=== PATIENT | male | born 1950 | race Caucasian/White ===

== ENCOUNTER 2018-08-20 05:38 | Day surgery (SDC) | payer OTHER, MEDICARE, SELFPAY ==
--- NOTE | 2018-08-20 | HYD_PTH ---
PATIENT: ISIAH VARELA LOC: [facility] U#:[id number] AGE/SX: 68/M ROOM: RE08/20/[address]: Dr. Miseal Lucia MD : [id number] BED: DIS: 08/20/2018 SPEC #: [id number] RECD: 08/20/18 09:19 STATUS: AMAN GERARD #: [id number] SWAPNIL: 08/20/18 00:[address]: Misael Lucia DEPT: SURGICAL PATHOLOGY RECD BY: Leif Ledbetter ENTERED: 08/20/18 10:32 SP TYPE: HYDROCELE OTHR DR: Dr. Ting Feliz MD Tissues: HYDROCELE Procedures: Surgery Specimen Level II HEADER OPERATION: Right hydrocelectomy PRE-OP DIAGNOSIS: Right encysted hydrocele TISSUE SUBMITTED: Right hydrocele sac MICROSCOPIC DIAGNOSIS Right hydrocele sac: Consistent with hydrocele sac. A portion of attached epididymis, no pathologic diagnosis. SJ:aniceto 08/22/18 MICROSCOPIC DESCRIPTION Slides are reviewed. GROSS DESCRIPTION Received in fixative is one container labeled with the patient's name and designated right hydrocele sac. The specimen consists of two variable size pieces of berg fibromembranous tissue measuring in aggregate 12 x 9 x 0.5 cm. No mass lesion is identified. [employer] Manager sections are submitted in two cassettes. / JOSUE:aniceto 08/20/18 TC:5 CPT: 11299
[2018-08-20 06:16] LABS: Prothrombin Time Fingerstick 11.7 SEC (11.9-14.4)
[2018-08-20 06:27] VITALS: BP 121/80; PULSE 87; RESP 16; TEMP 36.6; O2SAT 94; BMI 21.5
[2018-08-20] MEDS: Cefazolin 2 GM in 0.9% Normal Saline 100 ML IV (07:16)
[2018-08-20] MEDS: Bupivacaine Mpf 0.5% 30 ML VIAL (08:02)
--- NOTE | 2018-08-20 08:18 | DCINST_ITS ---
Discharge Diet: Light diet - advance as tolerated Discharge Activity: Return to Normal Activity Call your doctor if your incision/area has: Continuous Slow Oozing, Sudden Increased Bleeding, Increased Pain/ Swelling, Increased Redness, Foul Smelling Discharge, Swelling at the incision site Call your doctor if you observe: Fever of 101 or Higher Instructions: Hydrocele Surgery (Hydrocelectomy) Additional Instructions: ice scrotum with bag of ice every 20minutes off and on for 3 days teach how to care for CHAYA drain. Allergies/Adverse Reactions: Allergies influenza A (H1N1) virus vaccine m-ulysses-split 2008 [From influenza A (H1N1)] Allergy (Verified 08/13/18 10:48) Unknown Influenza Virus Vaccines Allergy (Verified 08/13/18 10:48) Unknown metoclopramide Allergy (Verified 05/17/17 13:04) Unknown promethazine Allergy (Verified 05/17/17 13:04) Unknown Medications to take at Discharge Acetaminophen [Tylenol Extra Strength] 500 mg PO QHS 05/17/17 Allopurinol 300 mg PO DAILY 05/17/17 Bisacodyl [Dulcolax] 5 mg PO SUTUTHFR 05/17/17 Cholecalciferol (Vitamin D3) [Vitamin D3] 2,000 unit PO DAILY 05/17/17 Docusate Sodium [Colace] 100 mg PO SUTUTHFR 05/17/17 Gabapentin [Neurontin] 300 mg PO QHS 05/17/17 Gabapentin [Neurontin] 600 mg PO DAILY 05/17/17 Haloperidol 1 mg PO DAILY 05/17/17 Lansoprazole [Prevacid] 30 mg PO DAILY 05/17/17 Mirtazapine [Remeron] 45 mg PO QHS 05/17/17 Pedi Mv No.79/Ferrous Fumarate [Flintstones with Iron Tab Chew] 15 mg PO DAILY 05/17/17 Polyethylene Glycol 3350 [Miralax] 17 gm PO PRN PRN 05/17/17 Potassium Chloride 10 meq PO DAILY 05/17/17 Warfarin Sodium [Coumadin] 4 mg PO SUMOTUWETHFR 05/17/17 levETIRAcetam tablet [Keppra] 500 mg PO BID 05/17/17 Alfuzosin HCl [Alfuzosin HCl ER] 10 mg PO QHS 08/13/18 Warfarin [Coumadin (PBKC)] 2 mg PO SA 08/13/18 Orders to be completed after discharge: Prothrombin Time w/INR Time Frame: 08/20/18, Location: Laboratory Primary Care Physician: Ting Feliz MD [Primary Care Provider] - Test Results: Test results from this visit will be discussed in further detail at your follow- up appointment, if applicable. Please Follow Up With: Misael Lucia MD When: please call to make an appointment- remove drain next saturday
--- NOTE | 2018-08-20 08:22 | PCM.OPRPT ---
Report of Operation Date of Procedure: 08/20/18 Pre-Operative Diagnosis: Right large symptomatic hydrocele Post-Operative Diagnosis: Same Surgery/Procedure Performed:: Right hydrocelectomy Description of Surgical Findings:: 68-year-old male taken back to the operating room after smooth induction of anesthesia the scrotum had a large hydrocele in the right side the scrotum was shaved prepped and draped in usual sterile fashion. I then made an incision in the midline raphae. We infiltrated the midline raphae with lidocaine. Then dissected through the skin the dartos muscle layer and then got to the hydrocele sac once I got into the hydrocele sac I delivered the hydrocele sac opened up a small opening the hydrocele sac to drain out the fluid the liver the sac from the scrotum I then incised the hydrocele sac we excised the edges of it off the testicle and also excised the sac itself of the testicle and off the spermatic cord after doing this then recheck for bleeding there were several spots of smooth minor bleeding you suture to suture these closed to make sure there is no bleeding then used electrocautery to make sure that there was no bleeding from the dissection. After the sac was removed areas along the cord were sutured and cauterized irrigated the wound placed the testicle back into the scrotum and the correct lie and then place a CHAYA drain into the scrotum and secured the drain to the skin with a stitch we then closed the dartos layer with a running 3-0 chromic and closed the skin with a running 4-0 chromic patient's anesthetic was reversed fluffs and dressed were were placed is taken back to the PACU in good condition. Type of Anesthesia:: General Drains: CHAYA - Admit VTE Documentation VTE Present on Admission: No VTE Mechan Device Prophylaxis: SCD's
[2018-08-20 08:25] VITALS: BP 121/80; BP 148/101; PULSE 85; RESP 14; TEMP 36.3; O2SAT 100
[2018-08-20 08:32] VITALS: BP 121/80; BP 135/94; PULSE 81; RESP 16; O2SAT 97
[2018-08-20 08:45] VITALS: BP 121/80; BP 124/78; PULSE 67; RESP 16; TEMP 36.1; O2SAT 96
[2018-08-20 10:25] VITALS: BP 121/80; BP 156/84; PULSE 69; RESP 16; TEMP 36.2; O2SAT 93
== END 2018-08-20 10:25 | disposition home or self-care (01) ==
LOC: SDC 05:43 → AC 05:46
PROVIDERS: Family Provider Internal Medicine; PCP Internal Medicine; Referring Provider Urology; Visit Provider Urology
PROC: (CPT 55040; principal; 2018-08-20 07:15)
DX: N43.0 Encysted hydrocele (principal); N40.1 Benign prostatic hyperplasia with lower urinary tract symptoms; N13.8 Other obstructive and reflux uropathy; R35.0 Frequency of micturition; R39.11 Hesitancy of micturition; R39.14 Feeling of incomplete bladder emptying; I69.959 Hemiplegia and hemiparesis following unspecified cerebrovascular disease affecting unspecified side; I10 Essential (primary) hypertension; E78.5 Hyperlipidemia, unspecified; M10.9 Gout, unspecified; G25.81 Restless legs syndrome; I73.9 Peripheral vascular disease, unspecified; K21.9 Gastro-esophageal reflux disease without esophagitis; F32.9 Major depressive disorder, single episode, unspecified; F41.9 Anxiety disorder, unspecified; Z79.01 Long term (current) use of anticoagulants; Z79.899 Other long term (current) drug therapy; Z87.442 Personal history of urinary calculi; Z85.51 Personal history of malignant neoplasm of bladder; Z85.528 Personal history of other malignant neoplasm of kidney; Z87.891 Personal history of nicotine dependence; Z89.2 Acquired absence of upper limb above wrist
CPT/HCPCS: 00920; 55040; 36416; 85610; 88302; J7120; J2405

== ENCOUNTER → 2019-10-01 08:46 | Outpatient (CLI) | payer MEDICARE, OTHER, SELFPAY ==
[2019-10-01 09:14] LABS: International Normalized Ratio 1.2
== END ==
PROVIDERS: Family Provider Internal Medicine; PCP Internal Medicine; Referring Provider Internal Medicine; Visit Provider Internal Medicine
DX: Z86.718 Personal history of other venous thrombosis and embolism (principal)
CPT/HCPCS: 85610

== ENCOUNTER 2022-03-28 17:03 | Emergency (ER) | payer MEDICARE, OTHER, SELFPAY ==
[2022-03-28 17:05] VITALS: BP 107/33; PULSE 130; RESP 26; TEMP 36.8; O2SAT 96; BMI 16.6
--- NOTE | 2022-03-28 17:24 | RAD_ITS ---
STUDY: X-RAY - LEFT SHOULDER REASON FOR EXAM: Male, 71 years old. injury TECHNIQUE: 3 view(s) of the shoulder. COMPARISON: None. FINDINGS: Mildly narrowed glenohumeral articulation. Normal acromioclavicular joint. Normal acromion. There is an acute fracture of the distal left clavicle with very mild separation of fracture fragments Normal humeral head and visualized proximal humerus. The soft tissue structures are unremarkable. Normal visualized pulmonary apex. RAD/Shoulder min 2 Views IMPRESSION: Mild degenerative changes of the left shoulder. Acute mildly displaced fracture of the distal clavicle. Electronically Signed: Jacek Lima MD at 19:38 EDT ,
--- NOTE | 2022-03-28 17:24 | CT_ITS ---
STUDY: CT CERVICAL SPINE WITHOUT CONTRAST REASON FOR EXAM: Male, 71 years old. head injury RADIATION DOSAGE (If Supplied By Facility): CTDIvol = ( 14.84 ) mGy, DLP = ( 252.55 ) mGycm TECHNIQUE: High resolution transaxial imaging was performed without contrast material. Sagittal and coronal images were reconstructed. Individualized dose optimization techniques were used for this CT. COMPARISON: None FINDINGS: Normal craniovertebral junction. Normal anterior atlantoaxial articulation. Normal odontoid process. Decreased cervical lordosis. Normal vertebral bodies and posterior osseous elements. C2-3: Normal endplates. Normal disc height and morphology. Normal central canal and intervertebral neuroforamina. C3-4: Narrowed disc space and minor endplate spurring.. Normal central canal. Mild left neuroforaminal encroachment secondary to bony hypertrophy C4-5: Normal endplates. Normal disc height and small central calcific disc or osteophyte protrusion.. Mild narrowing of the central canal. Normal intervertebral neuroforamina. C5-6: Narrowed disc space and mild endplate spurring. Normal central canal. Moderate left neuroforaminal stenosis secondary to bony hypertrophy.. C6-7: Normal endplates. Narrowed disc space without disc protrusion. Normal central canal and intervertebral neuroforamina. C7-T1: Normal endplates. Normal disc height and morphology. Normal central canal and intervertebral neuroforamina. Normal visualized soft tissue structures. CT/Spine Cervical without Contras IMPRESSION: Moderate spondylosis. No acute fracture or subluxation Electronically Signed: Jacek Lima MD at 19:36 EDT ,
--- NOTE | 2022-03-28 17:24 | CT_ITS ---
STUDY: CT BRAIN WITHOUT CONTRAST REASON FOR EXAM: Male, 71 years old. head injury RADIATION DOSAGE (If Supplied By Facility): CTDIvol = ( 47.06 ) mGy, DLP = ( 872.68 ) mGycm TECHNIQUE: Transaxial CT imaging of the brain was performed without administration of intravenous contrast material. Individualized dose optimization techniques were used for this CT. COMPARISON: No relevant priors. FINDINGS: Normal soft tissue structures. Normal calvarium. Mild calcific plaquing of cavernous carotids and vertebral arteries. Mild atrophy and periventricular white matter ischemic changes.. Normal basal ganglia and thalami. Normal brainstem. Normal cerebellum. Old right temporal lobe and frontal parietal infarct in association with porencephalic dilatation of the right lateral ventricle. There is no intracranial hemorrhage. There are no findings of an acute ischemic infarction. Normal visualized paranasal sinuses. CT/Brain/Head without Contrast IMPRESSION: Atrophy and periventricular white matter ischemic changes. 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 No evidence for acute bleed. Electronically Signed: Jacek Lima MD at 18:26 EDT ,
--- NOTE | 2022-03-28 17:24 | RAD_ITS ---
EXAM: XR RIGHT FOOT COMPLETE, 3 OR MORE VIEWS CLINICAL INDICATION: injury fracture pain TECHNIQUE: Frontal, lateral and oblique views of the right foot. This report was created using [employer] report generation technology. COMPARISON: None. FINDINGS: BONES/JOINTS: Fracture of the base of the first proximal phalanx. There is articular extension. Preservation of the joint space. No sclerotic or destructive changes observed. SOFT TISSUES: Unremarkable. No soft tissue swelling or gas. No radiopaque foreign body. RAD/Foot min 3 Views IMPRESSION: Fracture of the base of the first proximal phalanx. There is articular extension. Electronically Signed: Eamon Dejesus MD at 19:13 EDT ,
--- NOTE | 2022-03-28 17:24 | EKG12_ITS ---
Test Reason : Blood Pressure : / mmHG Vent. Rate : 113 BPM Atrial Rate : 113 BPM P-R Int : 170 ms QRS Dur : 092 ms QT Int : 324 ms P-R-T Axes : 075 -20 061 degrees QTc Int : 444 ms Sinus tachycardia with Premature atrial complexes Septal infarct (cited on or before 18-MAY-2017) Abnormal ECG Confirmed by SONYA MARIE, ALONDRA ([id number]), publication editor JOSE ALFREDO WHITT ([id number]) on 04/03/2022 9:40:29 AM Referred By: JORGE Confirmed By:RAMIREZ HASSAN MD
--- NOTE | 2022-03-28 17:26 | ED.VIS.FALL ---
HPI HPI - Fall History of Present Illness Chief Complaint: Fall Informant: family Narrative Narrative: Patient here with family for evaluation initial fall occurring 36 hours ago. Additional today had chills and weakness. Patient on warfarin for history of multiple blood clots. 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 He ambulates with assistance with family member next to him. Report sometimes walks leaning against the wall to go to the bathroom they heard him fall he was okay yesterday. Complains of right great toe or left shoulder. Injury to the left ear. No nausea or vomiting. This morning had chills. Reports mild cough denies urinary symptoms. Reported more weak lowering himself down. He is brought here for evaluation. PFSH PFSH Home Medications acetaminophen 500 mg tablet 500 mg PO QHS 05/17/17 [History Last Taken Unknown] allopurinol 300 mg tablet 300 mg PO DAILY 05/17/17 [History Last Taken Unknown] bisacodyl 5 mg tablet,delayed release (Dulcolax (bisacodyl)) 5 mg PO SUTUTHFR 05/17/17 [History Last Taken Unknown] cholecalciferol (vitamin D3) 50 mcg (2,000 unit) capsule (Vitamin D3) 2,000 unit PO DAILY 05/17/17 [History Last Taken Unknown] docusate sodium 100 mg capsule (DOK) 100 mg PO SUTUTHFR 05/17/17 [History Last Taken Unknown] gabapentin 300 mg capsule (Neurontin) 300 mg PO QHS 05/17/17 [History Last Taken Unknown] gabapentin 300 mg capsule (Neurontin) 600 mg PO DAILY 05/17/17 [History Last Taken 08/20/18 04:55] haloperidol 2 mg tablet 1 mg PO DAILY 05/17/17 [History Last Taken 05/24/17 07:00] lansoprazole 30 mg capsule,delayed release (Prevacid) 30 mg PO DAILY 05/17/17 [History Last Taken 08/20/18 04:55] levetiracetam 500 mg tablet 500 mg PO BID 05/17/17 [History Last Taken 08/20/18 04:55] mirtazapine 45 mg tablet (Remeron) 45 mg PO QHS 05/17/17 [History Last Taken Unknown] pediatric multivit no.79-ferrous fumarate 18 mg iron chewable tablet (Flintstones with Iron) 15 mg PO DAILY 05/17/17 [History Last Taken Unknown] polyethylene glycol 3350 17 gram oral powder packet 17 g PO PRN PRN Constipation 05/17/17 [History Last Taken Unknown] potassium chloride 10 mEq capsule,extended release 10 meq PO DAILY 05/17/17 [History Last Taken Unknown] warfarin 4 mg tablet (Coumadin) 3 mg PO QHS 05/17/17 [History Last Taken 08/15/18] alfuzosin 10 mg tablet,extended release 24 hr 10 mg PO QHS 08/13/18 [History Last Taken Unknown] acetaminophen 500 mg tablet 500 mg PO Q4H PRN PRN Pain #20 tabs 08/20/18 [Rx Last Taken Unknown] ibuprofen 600 mg tablet 600 mg PO Q6H PRN PRN Pain #20 tabs 08/20/18 [Rx Last Taken Unknown] ibuprofen 600 mg tablet 600 mg PO Q6H PRN PRN Pain #20 tabs 08/20/18 [Rx Last Taken Unknown] cefdinir 300 mg capsule 300 mg PO BID #13 caps 03/28/22 [Rx Last Taken Unknown] omeprazole 20 mg capsule,delayed release 20 mg PO DAILY 03/28/22 [History Last Taken Unknown] Allergy/AdvReac Type Severity Reaction Status Date / Time influenza A (H1N1) virus Allergy Unknown Verified 03/28/22 17:10 vaccine m-ulysses-split 2008 [From influenza A (H1N1)] Influenza Virus Vaccines Allergy Unknown Verified 03/28/22 17:10 metoclopramide Allergy Unknown Verified 03/28/22 17:10 promethazine Allergy Unknown Verified 03/28/22 17:10 Social History Smoking Status: Former smoker ROS ROS ED Constitutional Constitutional ED: Reports chills; Denies fever(s) or sweats Eyes Eyes: Denies change in vision ENT ENT ED: Denies dysphagia or sore throat Cardiovascular Cardiovascular: Denies chest pain, leg edema, palpitations or racing heartbeat Respiratory/Chest Respiratory/Chest: Reports cough; Denies dyspnea or dyspnea on exertion Gastrointestinal Gastrointestinal: Denies abdominal pain, diarrhea, nausea or vomiting Genitourinary Genitourinary ED: Denies dysuria, hematuria or urinary frequency Musculoskeletal Musculoskeletal: Reports extremity pain and other Details: Right great toe, left shoulder pain. ; Denies back pain or neck pain Integumentary Denies rash or wounds Neurologic Neurologic: Reports weakness; Denies headache(s) or paresthesias EXAM Physical Exam Const Vital Signs: 03/28/22 17:05 03/28/22 17:54 Temperature 98.3 F Temperature Source Temporal Pulse Rate 130 H Respiratory Rate 26 H Respiratory Effort Normal Non-Labored Respiratory Depth Normal Respiratory Pattern Normal Blood Pressure 107/33 L Blood Pressure Mean 57 Pulse Ox 96 93 Oxygen Delivery Method Room Air Room Air Positive well nourished and well developed Constitutional Narrative: Nontoxic, GCS 15. General Appearance ED: well developed and NAD HEENT Reports moist mucous membranes HEENT Narrative: Left outer ear contusion there is no hematoma. No hemotympanums. normocephalic Eyes PERRL, EOMs intact bilaterally and conjunctivae normal General Eye ED: Yes normal appearance of both eyes Neck no lymphadenopathy and supple General: Negative for tenderness Chest Wall Chest: Negative for tenderness Resp normal respiratory effort and normal air movement Effort and Inspection: symmetric chest movement; Negative for respiratory distress Cardio regular rate, regular rhythm and no murmurs Peripheral Pulses: pulses 2+ throughout GI normal to inspection, nondistended, normoactive bowel sounds and non-tender Palpation: Negative for guarding or rebound tenderness present Back/Spine no CVA tenderness and no thoracic nor lumbar tenderness Extremity Extremity Narrative: Right upper extremity above elbow amputation. Left upper extremity: Abrasion posterior shoulder there is no deformities. Mild tender palpation. No clavicle tenderness. Right lower extremity: There is ecchymosis tenderness at the great toe with no deformities. Skin intact. Pulses intact distally. Left lower extremity: Nontender. Negative logroll. No deformities. Pulses intact distally. General Extremety ED: Negative for edema or tenderness General Extremity: Negative for edema Neuro oriented x3, CN's II-XII intact bilaterally and no sensory deficits noted Sensorium / Orientation: awake and alert Skin Skin Narrative: See above MDM MDM MDM Narrative Medical decision making narrative: Patient presents fall yesterday head injury he is on warfarin. INR 2.2. Trauma scans head and neck negative. Initial injury left shoulder and right foot. 2 views left shoulder reviewed myself read by radiology notes nondisplaced distal clavicle fracture. 3 views right foot reviewed by myself and read by radiology concerns for proximal great toe fracture intra-articular. With patient reports chills today reporting cough. Lab work-up initiated white count returned at 17.9. Electrolytes normal. COVID testing negative. Urine negative. Chest x-ray 1 view reviewed by myself and read by radiology concerning for a left upper lobe density concerning for inflammatory. With his leukocytosis and cough he will be treated for pneumonia. Omnicef was started. With his mobility status, I did not add any postop shoes for increased risk of falls. He is always amatory with direct assistance with a family member at home. He is given follow-up with orthopedics as an outpatient for follow-up. Strict return precautions discussed. All questions were answered. Lab Data Attestation: I reviewed the patient's lab results. Labs: Laboratory Results - last 24 hr 03/28/22 03/28/22 03/28/22 17:45 17:45 17:45 WBC 17.9 H RBC 4.22 L Hgb 14.1 Hct 43.0 MCV 101.9 H MCH 33.4 H MCHC 32.8 RDW Std Deviation 51.5 H RDW Coeff of Blanca 13.8 Plt Count 200 MPV 9.8 Immature Gran % (Auto) 0.500 Neut % (Auto) 93.4 H Lymph % (Auto) 1.8 L Aiken % (Auto) 4.1 Eos % (Auto) 0.1 Baso % (Auto) 0.1 Absolute Neuts (auto) 16.7 H Absolute Lymphs (auto) 0.32 L Nucleated RBC % 0 Differential Comment SCANNED PT 24.5 H INR 2.2 APTT 35.3 Sodium 141 Potassium 4.4 Chloride 107 Carbon Dioxide 29.0 Anion Gap 5 BUN 10 Creatinine 0.97 Estim Creat Clear Calc 50.48 Est GFR (MDRD) Af Amer 97 Est GFR (MDRD) Non-Af 81 BUN/Creatinine Ratio 10.3 Glucose 109 H Calcium 9.1 Total Bilirubin 0.50 AST 27 ALT 15 L Alkaline Phosphatase 109 Total Protein 6.3 L Albumin 2.5 L Globulin 3.8 Albumin/Globulin Ratio 0.7 L Urine Color Urine Clarity Urine pH Ur Specific Bondurant Urine Protein Urine Glucose (UA) Urine Ketones Urine Occult Blood Urine Nitrite Urine Bilirubin Urine Urobilinogen Ur Leukocyte Esterase Urine RBC Urine WBC Ur Squamous Epith Cells Urine Bacteria Urine Mucus 03/28/22 17:50 WBC RBC Hgb Hct MCV MCH MCHC RDW Std Deviation RDW Coeff of Blanca Plt Count MPV Immature Gran % (Auto) Neut % (Auto) Lymph % (Auto) Aiken % (Auto) Eos % (Auto) Baso % (Auto) Absolute Neuts (auto) Absolute Lymphs (auto) Nucleated RBC % Differential Comment PT INR APTT Sodium Potassium Chloride Carbon Dioxide Anion Gap BUN Creatinine Estim Creat Clear Calc Est GFR (MDRD) Af Amer Est GFR (MDRD) Non-Af BUN/Creatinine Ratio Glucose Calcium Total Bilirubin AST ALT Alkaline Phosphatase Total Protein Albumin Globulin Albumin/Globulin Ratio Urine Color Yellow Urine Clarity Clear Urine pH 6.0 Ur Specific Bondurant 1.010 Urine Protein Negative Urine Glucose (UA) Normal Urine Ketones Negative Urine Occult Blood Negative Urine Nitrite Negative Urine Bilirubin Negative Urine Urobilinogen Normal Ur Leukocyte Esterase Negative Urine RBC 0 SEEN Urine WBC 0 SEEN Ur Squamous Epith Cells 0 SEEN Urine Bacteria RARE Urine Mucus 0 SEEN Radiography Diagnostic Testing: Clinical Impression(s) from Imaging Studies Brain CT 03/28/22 17:24 IMPRESSION: Atrophy and periventricular white matter ischemic changes. 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 No evidence for acute bleed. Electronically Signed: Jacek Lima MD at 18:26 EDT , Cervical Spine CT 03/28/22 17:24 IMPRESSION: Moderate spondylosis. No acute fracture or subluxation Electronically Signed: Jacek Lima MD at 19:36 EDT , Foot X-Ray 03/28/22 17:24 IMPRESSION: Fracture of the base of the first proximal phalanx. There is articular extension. Electronically Signed: Eamon Dejesus MD at 19:13 EDT , Shoulder X-Ray 03/28/22 17:24 IMPRESSION: Mild degenerative changes of the left shoulder. Acute mildly displaced fracture of the distal clavicle. Electronically Signed: Jacek Lima MD at 19:38 EDT Reading Location ID and State: [place] / [place] , Service support , Chest X-Ray 03/28/22 18:10 IMPRESSION: Mildly increased density in left upper lobe possibly inflammatory Electronically Signed: Jacek Lima MD at 19:40 EDT [place] Location ID and State: [place] / [place] , Service support , Discharge Plan Triage Chief Complaint: Fall ED Provider: Mohan Unger Dx/Rx/DC Orders Clinical Impression: Pneumonia, Closed fracture of left clavicle, Closed fracture of right great toe Instructions: Treating Pneumonia, ED Fracture, Clavicle, ED Fracture, Toe, Closed Prescriptions: New cefdinir 300 mg capsule 300 mg PO BID Qty: 13 0RF No Action potassium chloride 10 MEQ capsule, extended release 10 meq PO DAILY polyethylene glycol 3350 17 GM powder in packet 17 g PO PRN PRN (Reason: Constipation) levetiracetam 500 MG tablet 500 mg PO BID Label Comments: SEIZURES acetaminophen 500 MG tablet 500 mg PO QHS Label Comments: PAIN warfarin [Coumadin] 4 MG tablet 3 mg PO QHS Label Comments: WAS TOLD TO STOP 5 DAYS PRE OP lansoprazole [Prevacid] 30 MG capsule 30 mg PO DAILY Label Comments: REFLUX docusate sodium [DOK] 100 MG capsule 100 mg PO SUTUTHFR Label Comments: BOWELS gabapentin [Neurontin] 300 MG capsule 300 mg PO QHS Label Comments: PAIN,SEIZURES gabapentin [Neurontin] 300 MG capsule 600 mg PO DAILY mirtazapine [Remeron] 45 MG tablet 45 mg PO QHS Label Comments: DEPRESSION,RESTLESS LEGS allopurinol 300 MG tablet 300 mg PO DAILY Label Comments: GOUT bisacodyl [Dulcolax (bisacodyl)] 5 MG tablet,delayed release (DR/EC) 5 mg PO SUTUTHFR Label Comments: STOOL SOFTENER haloperidol 2 MG tablet 1 mg PO DAILY Label Comments: MENTAL MOOD DISORDER cholecalciferol (vitamin D3) [Vitamin D3] 2,000 UNIT capsule 2,000 unit PO DAILY Label Comments: SUPPLEMENT Flintstones with Iron 18 MG tablet,chewable 15 mg PO DAILY alfuzosin 10 MG tablet extended release 24 hr 10 mg PO QHS ibuprofen 600 MG tablet 600 mg PO Q6H PRN PRN (Reason: Pain) Qty: 20 0RF acetaminophen 500 MG tablet 500 mg PO Q4H PRN PRN (Reason: Pain) Qty: 20 0RF ibuprofen 600 MG tablet 600 mg PO Q6H PRN PRN (Reason: Pain) Qty: 20 0RF omeprazole 20 mg Capsule,Delayed Release(Dr/Ec) 20 mg PO DAILY Primary Care Provider: Ting Feliz Referrals: Ting Feliz MD [Primary Care Provider] - 3-5 Days Winston Eid MD [STAFF PHYSICIAN] - 1 Week Activity Restrictions/Additional Instructions: Early pneumonia on chest x-ray. COVID-negative. Take antibiotic as prescribed. Closed fracture of the distal clavicle, closed fracture right great toe. Follow-up with orthopedics. Disposition Disposition: Home, Self Care Discharge Date/Time: 03/28/22 21:47
[2022-03-28 17:54] VITALS: O2SAT 93
[2022-03-28] MEDS: 0.9% Normal Saline 1,000 ML 1000 ML IV (17:54)
[2022-03-28 17:57] LABS: Absolute Lymphocyte Count 0.32 X10^3/uL (0.83-4.51); Absolute Neutrophil Count 16.7 X10^3/uL (2.0-7.7); Basophil# 0.02 X10^3/uL; Basophil% 0.1 % (0-1); Eosinophil# 0.01 X10^3/uL; Eosinophils% 0.1 % (0-5); Hemoglobin 14.1 g/dL (13.0-16.5); Lymphocyte # 0.32 X10^3/ul (0.83-4.51); Lymphocyte % 1.8 % (19-41); Mean Corp Hgb Conc 32.8 g/dL (32-36); Mean Corpuscular Hgb 33.4 pg (27.0-32.0); Mean Corpuscular Volume 101.9 fL (80-94); Mean Platelet Vol. 9.8 fl (6.2-12.0); Monocyte# 0.74 X10^3/uL; Monocyte% 4.1 % (0-10); NRBC Flagged by Analyzer 0 % (0-5); Neutrophil # 16.69 X10^3/uL (2.7-7.7); Neutrophil % 93.4 % (47-70); POSITIVE DIFFERENTIAL YES; Platelet Count 200 K/mm3 (150-450); RBC Distribution Width CV 13.8 % (11.6-14.6); RBC Distribution Width SD 51.5 fl (35.1-43.9); Red Blood Count 4.22 M/mm3 (4.6-6.2); White Blood Count 17.9 K/mm3 (4.4-11.0)
[2022-03-28 17:58] LABS: Differential Indicated SCAN CRITERIA MET
[2022-03-28 18:08] LABS: Mucous, Urine 0 SEEN /hpf (<or=2+); Red Blood Cells-Urine 0 SEEN /hpf (0-5); Squamous Epithelial Cells - UA 0 SEEN /hpf (0-5); White Blood Cells 0 SEEN /hpf (0-5)
[2022-03-28 18:09] LABS: International Normalized Ratio 2.2; Prothrombin Time (Protime)PT. 24.5 SECONDS (11.7-14.9)
[2022-03-28 18:10] LABS: Partial Thromboplast Time 35.3 Seconds (24.1-36.2)
--- NOTE | 2022-03-28 18:10 | RAD_ITS ---
STUDY: X-RAY CHEST REASON FOR EXAM: Male, 71 years old. cough TECHNIQUE: AP portable COMPARISON: None. FINDINGS: Mildly increased density in left upper lobe possibly inflammatory.. There is no demonstrated pleural abnormality. Normal size heart. Normal mediastinum and marija. Normal visualized pulmonary arteries. Mild calcified aortic arch and descending thoracic aorta. Normal visualized thoracic spine. Normal visualized shoulders. Old healed fractures of the right rib cage.. Mildly displaced fracture of the distal left clavicle There is no demonstrated abnormality of the visualized soft tissue structures of the upper abdomen. RAD/Chest 1 View (Portable) IMPRESSION: Mildly increased density in left upper lobe possibly inflammatory Electronically Signed: Jacek Lima MD at 19:40 EDT ,
[2022-03-28 18:12] LABS: ALB/GLOB Ratio 0.7 RATIO (0.9-2.4); AST(SGOT) 27 U/L (15-37); Alanine Aminotransfer ALT/SGPT 15 U/L (16-61); Albumin, Serum 2.5 g/dL (3.2-5.0); Alkaline Phosphatase 109 U/L (45-117); Anion Gap 5 (5-15); BUN 10 mg/dL (7-18); BUN/Creat Ratio 10.3 RATIO (10-20); Calcium,Total 9.1 mg/dL (8.5-10.1); Chloride 107 mmol/L (98-107); Creatinine, Serum 0.97 mg/dL (0.70-1.30); EST Glomerular Filtration Rate 81 mL/min (>60); Est Glom Filt Rate - Afr Amer 97 mL/min (>60); Estimated Creatinine Clearance 50.48 ml/min; Globulin 3.8 g/dL (2.2-4.2); Glucose 109 mg/dL (74-106); Potassium 4.4 mmol/L (3.5-5.1); Protein, Total 6.3 g/dL (6.4-8.2); Sodium Level 141 mmol/L (136-145)
[2022-03-28 18:27] LABS: Differential Comment SCANNED
[2022-03-28 18:29] LABS: Color, Urine Yellow (Yellow); Glucose, Dipstick Normal (Normal); Ketone-Dipstick Negative (Negative); Leukocyte Esterase-Dipstick Negative /ul (Negative); Nitrite-Dipstick Negative (Negative); Occult Blood-Urine Negative /ul (Negative); Protein-Dipstick Negative (Negative); Urine Bilirubin Dipstick Negative (Negative); Urine Clarity Clear (Clear); Urine Urobilinogen Normal (Normal)
[2022-03-28 18:41] LABS: Bacteria RARE /hpf (None Seen)
[2022-03-28] MEDS: Cefdinir 300 MG Capsule PO (21:31)
== END 2022-03-28 21:47 | disposition home or self-care (01) ==
PROVIDERS: Emergency Provider Emergency Medicine; PCP Internal Medicine; Visit Provider Emergency Medicine
DX: S42.032A Displaced fracture of lateral end of left clavicle, initial encounter for closed fracture (principal); I69.354 Hemiplegia and hemiparesis following cerebral infarction affecting left non-dominant side; S92.411A Displaced fracture of proximal phalanx of right great toe, initial encounter for closed fracture; W19.XXXA Unspecified fall, initial encounter; J18.9 Pneumonia, unspecified organism; K21.9 Gastro-esophageal reflux disease without esophagitis; G25.81 Restless legs syndrome; M10.9 Gout, unspecified; F32.A Depression, unspecified; Z79.01 Long term (current) use of anticoagulants; Z79.899 Other long term (current) drug therapy; Z87.891 Personal history of nicotine dependence
CPT/HCPCS: 70450; 71045; 72125; 73030; 73630; 80053; 81001; 85025; 85610; 85730; 87811; 93005; 96360; 96361; 99284; J7030; A4216

== ENCOUNTER → 2022-05-28 | Outpatient (CLI) | payer MEDICARE, OTHER, SELFPAY ==
[2022-05-28 10:26] LABS: International Normalized Ratio 1.6; Prothrombin Time (Protime)PT. 19.1 SECONDS (11.7-14.9)
== END | disposition home or self-care (01) ==
LOC: LABSPEC 09:52
PROVIDERS: PCP Internal Medicine; Visit Provider Internal Medicine
DX: I82.4Z9 Acute embolism and thrombosis of unspecified deep veins of unspecified distal lower extremity (principal)
CPT/HCPCS: 85610

== ENCOUNTER → 2023-11-19 | Outpatient (CLI) | payer MEDICARE, OTHER, SELFPAY ==
[2023-11-19 15:00] LABS: PSA,Total - Annual Screen 0.45 ng/mL (0.00-4.00)
== END | disposition home or self-care (01) ==
LOC: LAB 13:38
PROVIDERS: PCP Internal Medicine; Referring Provider Nurse Practitioner; Visit Provider Nurse Practitioner
DX: Z12.5 Encounter for screening for malignant neoplasm of prostate (principal)
CPT/HCPCS: 36415; 84153; G0103

== ENCOUNTER → 2024-11-26 | Outpatient (CLI) | payer MEDICARE, OTHER, SELFPAY | END | disposition home or self-care (01) | LOC: LAB 13:19 | PROVIDERS: PCP Internal Medicine; Referring Provider Urology; Visit Provider Urology | DX: Z12.5 Encounter for screening for malignant neoplasm of prostate (principal) | CPT/HCPCS: 36415; 84153; G0103 ==